=== PATIENT | female | born 1985 | race Caucasian/White ===

== ENCOUNTER 2024-01-13 21:21 | Emergency (ER) | payer OTHER, SELFPAY ==
[2024-01-13 21:27] VITALS: BP 136/89; PULSE 75; RESP 16; TEMP 36.2; O2SAT 98; BMI 34.7
--- NOTE | 2024-01-13 22:49 | ED_ITS ---
HPI - General Adult General Date Seen: 01/13/24 Chief complaint: Laceration/Wound Stated complaint: cut left index finger with steak knife Time Seen by Provider: 01/13/24 22:32 History of Present Illness HPI narrative: Very pleasant 38-year-old female with history of brain cancer and seizures (currently on anti epileptics but not on chemo or immunosuppression), who presents to the ER today with her for evaluation of a left index finger laceration. She was trying to open a plastic wrapping on the cap of a bottle of eyedrops this evening using a kitchen knife when she accidentally stabbed herself in the dorsum of her left index finger, middle phalanges. She suffered a 1 cm laceration. It was bleeding briskly but dark red venous oozing at home. Bleeding was controlled by direct pressure. She is able to flex and extend her finger. No associated numbness or tingling. No other injuries. Related Data Home Medications ?Medication ?Instructions ?Recorded ?Confirmed cyclosporine 0.05 % eye drops in a 1 drp ophthalmic (eye) BID 01/13/24 01/13/24 dropperette lacosamide 100 mg tablet 100 mg PO BID 01/13/24 01/13/24 prazosin 1 mg capsule 1 - 2 mg PO QPM 01/13/24 01/13/24 prednisolone acetate 1 % eye drp ophthalmic (eye) 01/13/24 drops,suspension trazodone 50 mg tablet 25 - 50 mg PO QPM 01/13/24 01/13/24 vilazodone 10 mg tablet 10 mg PO DAILY 01/13/24 01/13/24 Allergies Allergy/AdvReac Type Severity Reaction Status Date / Time No Known Drug Allergies Allergy Verified 01/13/24 21:25 Exam Narrative: Exam Narrative: Constitutional: Appears well-developed and well-nourished. Active. Non-toxic appearing. HENT: Head: Atraumatic. No signs of injury. Nose: No nasal discharge. Mouth/Throat: Mucous membranes are moist. Pharynx is normal. Tonsils symmetric. Uvula midline. Airway patent. Eyes: Conjunctivae normal and EOM are normal. Pupils are equal, round, and reactive to light. Right eye exhibits no discharge. Left eye exhibits no discharge. No icterus. Neck: Normal range of motion. Neck supple. No adenopathy. No stridor. Cardiovascular: Normal rate and regular rhythm. No murmur heard. No murmurs, rubs, or gallops. Brisk capillary refill Pulmonary/Chest: Effort normal. No stridor. No respiratory distress. No wheezes.No rhonchi. No rales. Musculoskeletal: Normal range of motion. No edema. No tenderness. No deformity. She does have a 1 cm linear laceration on the dorsum of the middle phalanges of her left hand index finger. It runs parallel to the axis of the phalanges. Intact flexion-extension of the D IP, PIP, MCP. Normal ulnar and radial digital nerve sensory function. Normal distal cap refill. Inspection of the wound in the bloods field reveals no evidence for foreign body. I do not see any evidence that there is an associated extensor tendon laceration. No other injury. Neurological: Alert. Normal strength. No cranial nerve deficit or sensory deficit. Coordination normal. GCS eye subscore is 4. GCS verbal subscore is 5. GCS motor subscore is 6. Skin: Skin is warm. No rash noted. Const: Vital Signs, click to edit/add: Vital Signs - 24 hr 01/13/24 21:27 Temperature 97.1 F L Pulse Rate [Pulse Oximeter] 75 Respiratory Rate 16 Blood Pressure [Ri ght Upper Arm] 136/89 Pulse Oximetry 98 Oxygen Delivery Me thod Room Air Course Vital Signs Vital signs: Initial Vital Signs Temperature 97.1 F L 01/13/24 21:27 Temperature Source Temporal Artery Scan 01/13/24 21:27 Pulse Rate 75 01/13/24 21:27 Respiratory Rate 16 01/13/24 21:27 Blood Pressure 136/89 01/13/24 21:27 Blood Pressure Mean 104 01/13/24 21:27 Blood Pressure Position Sitting 01/13/24 21:27 Pulse Oximetry 98 01/13/24 21:27 Oxygen Delivery Method Room Air 01/13/24 21:27 Vital Signs Temperature 97.1 F L 01/13/24 21:27 Pulse Rate 75 01/13/24 21:27 Respiratory Rate 16 01/13/24 21:27 Blood Pressure 136/89 01/13/24 21:27 Pulse Oximetry 98 01/13/24 21:27 Oxygen Delivery Method Room Air 01/13/24 21:27 Temperature 97.1 F L 01/13/24 21:27 Pulse Rate 75 01/13/24 21:27 Respiratory Rate 16 01/13/24 21:27 Blood Pressure 136/89 01/13/24 21:27 Pulse Oximetry 98 01/13/24 21:27 Oxygen Delivery Method Room Air 01/13/24 21:27 Medical Decision Making MDM Narrative Medical decision making narrative: Findings and exam are consistent with an uncomplicated laceration which was repaired as noted above. There is no evidence at this time to suggest any associated fracture or foreign body. There is no evidence to suggest tendon or arterial injury and patient is neurologically in tact . The patient is to follow up for suture removal as instructed in 7-10 days. Indications to seek urgent reevaluation and signs of infection (including but not limited to increasing pain, redness, swelling, fevers, and drainage) were reviewed. Tetanus is up-to-date. This is a clean and non-contaminated wound in which prophylactic antibiotics are not indicated. An understanding of the discharge instructions and need for follow up were verbally confirmed. Discharge Plan Discharge Clinical Impression: Finger laceration Patient Disposition: Home, Self-Care Condition: Stable Instructions: Finger Laceration (ED) Additional Instructions: As we discussed, please come back to the ER right away if you have any concerns especially signs of infection such as redness, swelling, or pus draining from the wound, or if you have any concern for uncontrolled bleeding, trouble moving her finger, or any problems. Clean the wound gently once per day. After it is cleaned up the wound dry and then reapply antibiotic ointment. After the images on, reapply a bandage or dressing. Keep the wound covered with a bandage or dressing every day until the stitches are removed. Avoid activities that require bending your finger. Keep your finger clean and dry. Do not submerge your left hand in water until the stitches are removed. Please follow-up with your regular doctor or the Urgent Care in 7-10 days to have the stitches removed. Prescriptions: No Action trazodone 50 mg tablet 25 - 50 mg PO QPM prazosin 1 mg capsule 1 - 2 mg PO QPM prednisolone acetate 1 % drops,suspension ophthalmic (eye) cyclosporine 0.05 % dropperette 1 drp ophthalmic (eye) BID lacosamide 100 mg tablet 100 mg PO BID vilazodone 10 mg tablet 10 mg PO DAILY Follow Up/Referrals: Emanuel Jackson MD [Primary Care Provider] - Stand Alone Forms: [facility] Info Instructions Procedures Laceration Left hand, index finger, laceration: Verification/time out: correct patient and correct site Site: hand (1 cm left index finger laceration) Side (If applicable): left Size (cm): 1 Depth: simple, single layer Local Anesthetic: lidocaine 1% (Digital block. Total of 2.5 mL of anesthetic. Sterile prep with Betadine. Infiltration from a dorsal approach on the radial and ulnar sides of the proximal phalanges. Good anesthesia achieved.) Amount of anesthesia used (mL): 2.5 Pre-repair: wound explored Skin layer closed with: nylon Number of sutures: 3 Technique: simple, interrupted
== END 2024-01-13 23:39 | disposition home or self-care (01) ==
LOC: ED 23:32
PROVIDERS: Emergency Provider Emergency Medicine; PCP Family Medicine
DX: S61.311A Laceration without foreign body of left index finger with damage to nail, initial encounter (principal); W26.0XXA Contact with knife, initial encounter
CPT/HCPCS: 12001; 99282; 99283